=== PATIENT | female | born 1945 | race Two or more races ===

== ENCOUNTER 2019-03-07 15:44 | Inpatient (IN) | payer MEDICARE ==
[~2019-03-07] VITALS: Ht 167.6 cm; Wt 84.6 kg
[2019-03-07] MEDS ORDERED: SODIUM CHLORIDE 0.9% 1,000 ML IV ONE (16:08)
[2019-03-07 16:30] LABS: BASOPHILS % 0.5 % (0.0-2.0); EOSINOPHILS % 0.8 % (0.0-5.0); HEMATOCRIT. 28.6 % (36.0-48.0); HEMOGLOBIN. 9.5 g/dL (12.0-16.0); LYMPHOCYTES % 14.4 % (20.0-50.0); MEAN CORPUSCULAR HEMOGLOBIN 27.8 pg (28.0-32.0); MEAN CORPUSCULAR VOLUME 83.8 fL (81.0-99.0); MEAN PLATELET VOLUME 8.7 fl (7.4-10.4); MONOCYTES % 5.4 % (2.0-8.0); NEUTROPHILS % 78.9 % (40.0-76.0); PLATELET 305 x1000/uL (130-400); RED BLOOD CELL COUNT 3.42 mill/uL (4.2-5.4); RED CELL DISTRIBUTION WIDTH 15.8 % (11.6-14.6)
[2019-03-07 16:33] LABS: CHLORIDE 103 mEq/L (98-107)
[2019-03-07 16:35] LABS: PARTIAL THROMBOPLASTIN TIME 22.6 sec (23.4-31.0); PROTHROMBIN TIME 10.2 sec (9.6-11.0)
[2019-03-07] MEDS ORDERED: KCL 10MEQ/50ML PREMIX 50 ML IV ONE (17:00)
[2019-03-07] MEDS ORDERED: POTASSIUM CHLORIDE 20MEQ TABLET SR PO ONE (17:00)
[2019-03-07] MEDS ORDERED: MAGNESIUM 2 G PREMIX 50 ML IV ONE (17:30)
[2019-03-07 19:22] LABS: COLOR URINE YELLOW (YELLOW); KETONES URINE NEGATIVE (NEGATIVE); LEUKOCYTE ESTERASE URINE 2+ (NEGATIVE); NITRITE URINE NEGATIVE (NEGATIVE); OCCULT BLOOD URINE NEGATIVE (NEGATIVE); PH URINE 6.5 (4.5-8.0); PROTEIN URINE NEGATIVE (NEGATIVE); SPECIFIC GRAVITY URINE 1.018 (1.005-1.030)
[2019-03-07 19:25] LABS: CLARITY URINE SL HAZY (CLEAR)
[2019-03-07 21:09] VITALS: BP 133/43
[2019-03-07] MEDS ORDERED: DIPHENHYDRAMINE 50MG/ML VIAL IV PRN (21:45)
[2019-03-07] MEDS ORDERED: HYDROMORPHONE HCL/PF 2MG/ML CPJ IV PRN (21:45)
[2019-03-07] MEDS ORDERED: DEXTROSE 50% WATER 50ML SYRINGE IV PRN (21:45)
[2019-03-07] MEDS ORDERED: HYDROCODONE/ACETAMINOPHEN 10/325MG TABLET PO PRN (21:45)
[2019-03-07] MEDS ORDERED: ONDANSETRON HCL 4MG/2ML INJ IV PRN (21:45)
[2019-03-07] MEDS ORDERED: MAGNESIUM/ALUMINUM HYDROXIDE/SIMETHICONE 30ML UDC PO PRN (21:45)
[2019-03-07] MEDS ORDERED: GUAIFENESIN 200MG/10ML SUGAR FREE UDC PO PRN (21:45)
[2019-03-07] MEDS ORDERED: LORAZEPAM 2MG/ML CPJ IV PRN (21:45)
[2019-03-07] MEDS ORDERED: HYDRALAZINE 20MG/ML VIAL IV PRN (21:45)
[2019-03-07] MEDS ORDERED: ACETAMINOPHEN 325MG TABLET PO PRN (21:45)
[2019-03-07] MEDS ORDERED: DOCUSATE SODIUM 100MG CAPSULE PO PRN (21:45)
[2019-03-07] MEDS ORDERED: CLONIDINE 0.1MG TABLET PO PRN (21:45)
[2019-03-07] MEDS ORDERED: IPRATROPIUM/ALBUTEROL 0.5-3(2.5)MG/3ML NEB INH PRN (21:45)
[2019-03-07] MEDS ORDERED: ENOXAPARIN 40MG/0.4ML SYR SUBCUT SCH (22:00)
[2019-03-07] MEDS ORDERED: CEFTRIAXONE 1 G PREMIX 50 ML IV SCH (23:00)
[2019-03-07 23:36] LABS: CREATINE KINASE 79 IU/L (26-192)
[2019-03-07 23:37] LABS: CREATINE KINASE MB FRACTION 2.1 ng/mL (0.5-3.6)
[2019-03-07] MEDS: SODIUM CHLORIDE 0.9% INJ 3ML FLUSH IVF SCH (23:54)
[2019-03-08] VITALS: BP 136/77
[2019-03-08 04:00] VITALS: BP 139/76
[2019-03-08] MEDS ORDERED: CLOP75TA33 PO (04:26)
[2019-03-08] MEDS ORDERED: ROSU40TA21 PO (04:26)
[2019-03-08] MEDS ORDERED: OLME40TA18 PO (04:26)
[2019-03-08] MEDS ORDERED: OXYB5TAB PO (04:26)
[2019-03-08] MEDS ORDERED: NEBI20TA2 PO (04:26)
[2019-03-08] MEDS ORDERED: MULT-647 PO (04:26)
[2019-03-08] MEDS ORDERED: AMLO10TA80 PO (04:26)
[2019-03-08] MEDS ORDERED: HYDR25TA PO (04:26)
[2019-03-08] MEDS ORDERED: PANT40TA4 PO (04:26)
[2019-03-08] MEDS ORDERED: ASPI-1159 PO (04:26)
[2019-03-08] MEDS ORDERED: LIRA0.6P2 SQ (04:26)
[2019-03-08] MEDS ORDERED: MUPI1OIN4 TP (04:26)
[2019-03-08] MEDS ORDERED: ACET-2708 PO (04:26)
[2019-03-08] MEDS ORDERED: METF-416 PO (04:26)
[2019-03-08] MEDS ORDERED: UBID100T7 PO (04:26)
[2019-03-08] MEDS: SODIUM CHLORIDE 0.9% INJ 3ML FLUSH IVF SCH (06:27)
[2019-03-08] MEDS: BLOOD SUGAR DIAGNOSTIC STRIP TEST SCH ×2 (06:28→12:40)
[2019-03-08 06:40] LABS: BASOPHILS % 0.1 % (0.0-2.0); EOSINOPHILS % 0.6 % (0.0-5.0); HEMATOCRIT. 25.4 % (36.0-48.0); HEMOGLOBIN. 8.5 g/dL (12.0-16.0); LYMPHOCYTES % 17.9 % (20.0-50.0); MEAN CORPUSCULAR HEMOGLOBIN 27.7 pg (28.0-32.0); MEAN PLATELET VOLUME 8.9 fl (7.4-10.4); MONOCYTES % 6.9 % (2.0-8.0); NEUTROPHILS % 74.5 % (40.0-76.0); PLATELET 240 x1000/uL (130-400); RED BLOOD CELL COUNT 3.06 mill/uL (4.2-5.4); RED CELL DISTRIBUTION WIDTH 15.8 % (11.6-14.6)
[2019-03-08 06:43] LABS: CHLORIDE 103 mEq/L (98-107)
[2019-03-08 06:52] LABS: CREATINE KINASE 73 IU/L (26-192)
[2019-03-08 06:57] LABS: CREATINE KINASE MB FRACTION 1.2 ng/mL (0.5-3.6)
[2019-03-08 08:00] VITALS: BP 143/70
[2019-03-08] MEDS: INSULIN LISPRO 100 UNITS/ML SUBCUT SCH ×2 (08:10→13:37)
[2019-03-08] MEDS ORDERED: POTASSIUM CHLORIDE 20MEQ TABLET SR PO NR (11:15)
[2019-03-08 12:00] VITALS: BP 135/57
== END 2019-03-08 15:31 | disposition home or self-care (01) | DRG 920 ==
LOC: ER 15:44 → EDBD 15:44 → 7WST 16:50 → EDBEDREQTM 16:55 → EDBEDREQSVC 16:55 → EDBEDREQ 16:55 → ENRESERV 20:37
PROVIDERS: ADMIT Internal Medicine; ATTEND Internal Medicine
DX: L76.32 Postprocedural hematoma of skin and subcutaneous tissue following other procedure (principal); N39.0 Urinary tract infection, site not specified; E87.6 Hypokalemia; E11.9 Type 2 diabetes mellitus without complications; I09.89 Other specified rheumatic heart diseases; I95.9 Hypotension, unspecified; R53.1 Weakness; Y83.8 Other surgical procedures as the cause of abnormal reaction of the patient, or of later complication, without mention of misadventure at the time of the procedure; Z86.73 Personal history of transient ischemic attack (TIA), and cerebral infarction without residual deficits; Z91.048 Other nonmedicinal substance allergy status; Y92.89 Other specified places as the place of occurrence of the external cause
CPT/HCPCS: 36415; 71045; 76641; 82550; 82553; 82962; 83735; 83880; 84484; 86850; 86900; 93005; 96360; 96361; 99285; J0696; J1650; J1815; J2060; J3475; J3480; J7030; J7040; J7050